=== PATIENT | male | born 2000 | race Caucasian/White ===

== ENCOUNTER 2022-07-23 17:08 | Emergency (ER) | payer OTHER, SELFPAY ==
--- NOTE | 2022-07-23 17:16 | ED.URI ---
HPI - URI/Sore Throat General Chief Complaint: Upper Respiratory Infection Stated Complaint: RUNNY NOSE/COUGH/HEADACHE/CHILLS/BODY ACHES Time Seen by Provider: 07/23/22 17:16 Source: patient, RN notes reviewed and old records reviewed Mode of arrival: ambulatory Limitations: no limitations History of Present Illness HPI Narrative: 22 year male presents to the [facility] with complaints of runny nose, cough, headache, chills and body aches since Friday night, early Friday morning. Had tried taking allergy medication 1 time. Has taken ibuprofen 1 time. Has felt feverish. Onset (ago): day(s) (3-4) Related Data Home Medications Medication Instructions Recorded Confirmed No Home Medications 07/23/22 07/23/22 Allergies Allergy/AdvReac Type Severity Reaction Status Date / Time No Known Allergies Allergy Verified 07/23/22 17:30 Review of Systems Review of Systems: All systems reviewed & are unremarkable except as noted in HPI and below Constitutional: Constitutional: Reports as per HPI and Reports chills Eyes: Eyes: Reports no additional eye complaints ENT: Reports as per HPI and Reports nasal congestion Cardiovascular: Cardiovascular: Reports no additional cardiovascular complaints, Denies chest pain and Denies dyspnea Respiratory: Respiratory: Reports as per HPI, Reports no additional respiratory complaints, Denies chest congestion, Reports cough and Denies dyspnea Gastrointestinal: Gastrointestinal: Reports no additional gastrointestinal complaints Musculoskeletal: Musculoskeletal: Reports no additional musculoskeletal complaints Integumentary/Breasts: Skin/Breast: Reports system reviewed and no additional complaints, except as docu Neurologic: Reports system reviewed and no additional complaints, except as documented Psychiatric: Psychiatric: Reports no additional psychiatric complaints Allergic/Immunologic: Allergic/Immunologic: Reports no additional allergic/immunologic complaints PMFSH Comments At the time of my signature, I reviewed and agree with the nursing past medical, surgical, social, and family history. There is no relevant family history pertinent to the patient complaint. Exam Const: General: cooperative, healthy appearing, comfortable, no acute distress, well developed, alert and average body habitus Nutritional Appearance: average body habitus Orientation/consciousness: patient oriented x3 Limitations: no limitations HENMT: Head: normal to inspection Ears: hearing grossly normal bilaterally Face/Nose/Sinus: Normal external nose present, Normal nares present, Normal nasal mucous membranes and turbinates present, Nasal discharge present clear bilateral and normal facial exam Face and sinus: normal facial exam Mouth: Yes Normal oral and palatal mucosa present, Yes lip normal and Yes moist mucous membranes Throat: posterior oropharynx normal and uvula midline Eyes: General: appearance normal, both eyes and all related structures Alignment and Position: alignment normal Periorbital: periorbital findings normal Conjunctivae: conjunctivae normal Pupils: Equal, round and reactive pupils present EOM: EOMs intact bilaterally Neck: Neck: normal visual inspection, full ROM, no lymphadenopathy and no meningeal signs Chest: Chest palpation & inspection: normal inspection of the chest Resp: Effort & Inspection: normal respiratory effort and able to speak in complete sentences Auscultation: clear to auscultation bilaterally, no crackles, no rales, no rhonchi and no wheezes Cardio: Rate: regular rate Rhythm: regular rhythm GI: Inspection: normal to inspection GI Palp: No abdominal tenderness Auscultation: normal bowel sounds Skin: General skin exam: normal color Lesions: no lesions Rashes: no rashes Wounds: no wounds Neuro: General: patient oriented x3, gait normal, tone normal, moves all extremities and no meningeal signs Cranial nerves: Yes Equal, round and reactive pupils present
[2022-07-23 17:18] VITALS: BP 140/90; PULSE 85; RESP 20; TEMP 36.7; O2SAT 99
== END 2022-07-23 17:59 | disposition home or self-care (01) ==
PROVIDERS: Emergency Provider Nurse Practitioner
DX: J06.9 Acute upper respiratory infection, unspecified (principal)
CPT/HCPCS: 87804; 99213; G0463

== ENCOUNTER 2022-09-04 16:14 | Emergency (ER) | payer OTHER, SELFPAY ==
[2022-09-04 16:23] VITALS: BP 127/83; PULSE 106; RESP 20; TEMP 37.8; O2SAT 99
--- NOTE | 2022-09-04 16:26 | ED.URI ---
HPI - URI/Sore Throat General Chief Complaint: Upper Respiratory Infection Stated Complaint: HEADACHE/BODY ACHES/RUNNY NOSE/CONGESTION/CHILLS Time Seen by Provider: 09/04/22 16:26 Source: patient, RN notes reviewed and old records reviewed Mode of arrival: ambulatory Limitations: no limitations History of Present Illness HPI Narrative: 22-year-old male who presents to [facility] with complaints of cold symptoms and fever since yesterday. Patient states he has had chills, body aches, headache weakness with some nausea. cough with congestion is unsure if he has had fever since he has been taking ibuprofen. Patient had 1 COVID vaccination but has not had any boosters has not had flu shot. MD elicited complaint: fever, cough, rhinorrhea, nasal congestion and other ( headache, body aches) Onset (ago): day(s) (day 2) Pain scale (0-10): 5 Treatments prior to arrival: ibuprofen Related Data Home Medications Medication Instructions Recorded Confirmed lisdexamfetamine 30 mg capsule 30 mg PO DAILY 09/04/22 09/04/22 (Vyvanse) Allergies Allergy/AdvReac Type Severity Reaction Status Date / Time No Known Allergies Allergy Verified 09/04/22 16:25 Review of Systems Review of Systems: CONSTITUTIONAL: report malaise, chills, sweats, or fever. EYES: Denies visual changes, redness, or discharge. ENT: Reports rhinorrhea, congestion, sinus pain, no otalgia or sore throat. CARDIOVASCULAR: Denies chest pain, palpitations, or edema. RESPIRATORY: Reports cough.? Denies dyspnea. GASTROINTESTINAL: Denies abdominal pain,reports some nausea,no vomiting, diarrhea SKIN: Denies rash or itching. MUSCULOSKELETAL: report myalgia. NEUROLOGIC: reports headache. All systems reviewed & are unremarkable except as noted in HPI and below PMFSH Past Medical History Medical History (Updated 09/04/22 @ 16:45 by Sienna Marks NP) ADHD (attention deficit hyperactivity disorder) Social History Social History (Updated 09/04/22 @ 19:29 by Sienna Marks NP) Smoking status: Never smoker Alcohol intake: current Alcohol use details: social Substance use type: marijuana Comments At time of signature, agree with nursing past medical, surgical, social and family history. There is no relevant family history pertinent to the presenting complaint Exam Narrative: GENERAL: Well-appearing, well-nourished, and in no acute distress. HEAD: Normocephalic EYES: PERRLA, conjunctivae clear ENT: Nares clear, turbinates edematous and erythematous, clear discharge. Mucous membranes moist. TM pearly hung with dull light reflex bilaterally; no tragal tenderness. Oropharynx erythematous without lesions. Tonsils not enlarged and without exudate, no drooling, no hoarseness, no trismus, uvula midline. NECK: Supple. No lymphadenopathy CHEST: Clear to auscultation, breath sounds equal. No wheezing, rhonchi, rales, or stridor. No respiratory distress, speaks in full sentences.dry cough SAO2 99% on room air HEART: Regular rate and rhythm. No murmur heard. SKIN: Warm, dry, no rash. NEURO: Alert and oriented x3. PSYCH: Normal mood and affect Course Course Emergency Course: Patient is aware of diagnosis, understands and agrees to treatment plan.? Anticipatory guidance given.? Patient agrees to follow-up as directed and is aware of reasons to seek care at the emergency department. Portions of this record may have been created with voice recognition software Level of Care: Express Care Visit Vital Signs Vital signs: Vital Signs Temperature 37.8 C H 09/04/22 16:23 Pulse Rate 106 H 09/04/22 16:23 Respiratory Rate 20 09/04/22 16:23 Blood Pressure 127/83 09/04/22 16:23 Pulse Oximetry 99 09/04/22 16:23 Temperature 37.8 C H 09/04/22 16:23 Pulse Rate 106 H 09/04/22 16:23 Respiratory Rate 20 09/04/22 16:23 Blood Pressure 127/83 09/04/22 16:23 Pulse Oximetry 99 09/04/22 16:23 Oxygen Delivery Room
== END 2022-09-04 16:50 | disposition home or self-care (01) ==
PROVIDERS: Emergency Provider Registered Nurse
DX: U07.1 COVID-19 (principal); F90.9 Attention-deficit hyperactivity disorder, unspecified type
CPT/HCPCS: 87426; 87804; 99213; C9803; G0463

== ENCOUNTER 2022-09-17 12:35 | Emergency (ER) | payer OTHER, SELFPAY ==
[2022-09-17 12:41] VITALS: BP 128/80; PULSE 97; RESP 18; TEMP 37.9; O2SAT 99
--- NOTE | 2022-09-17 12:50 | ED.URI ---
HPI - URI/Sore Throat General Chief Complaint: Upper Respiratory Infection Stated Complaint: SORE THROAT/COUGH/CONGESTION/FEVER/LIGHT HEADED Time Seen by Provider: 09/17/22 12:50 Source: patient Mode of arrival: ambulatory Limitations: no limitations History of Present Illness HPI Narrative: 22-year-old male presents with complaint of sore throat, fatigue, body aches, fever, nausea, drainage since last night. Reports that he had COVID 2 weeks ago. States that symptoms are similar. Denies chest pain and shortness of breath. Last night he took NyQuil to help him sleep. All Systems reviewed and negative except as noted above. Related Data Home Medications Medication Instructions Recorded Confirmed lisdexamfetamine 30 mg capsule 30 mg PO DAILY 09/04/22 09/17/22 (Vyvanse) Allergies Allergy/AdvReac Type Severity Reaction Status Date / Time No Known Allergies Allergy Verified 09/17/22 12:41 Review of Systems Review of Systems: CONSTITUTIONAL: Reports fever, chills, or sweats. EYES: Denies visual changes, redness, or discharge. ENT: Reports rhinorrhea, congestion, sore throat. Denies otalgia. CARDIOVASCULAR: Denies chest pain, palpitations, or edema. RESPIRATORY: Denies cough or dyspnea. GASTROINTESTINAL: Denies abdominal pain. Reports nausea. Denies vomiting, or diarrhea. GENITOURINARY: Denies dysuria or hematuria. SKIN: Denies rash or itching. MUSCULOSKELETAL: Denies back pain, joint pain, or myalgia. NEUROLOGIC: Denies headache, numbness, or weakness. PSYCHIATRIC: Denies anxiety or depression. All other systems reviewed are negative, except as documented in HPI. PMFSH Past Medical History Medical History (Updated 09/17/22 @ 13:03 by Janie Melgoza NP) ADHD (attention deficit hyperactivity disorder) Social History Social History (Updated 09/04/22 @ 19:29 by Sienna Marks NP) Smoking status: Never smoker Alcohol intake: current Alcohol use details: social Substance use type: marijuana Comments At time of signature, agree with nursing past medical, surgical, social and family history. There is no relevant family history pertinent to the presenting complaint. Exam Narrative: GENERAL: This is a well-nourished, well-developed patient, in no apparent distress. HEAD: normocephalic, atraumatic. EYES: PERRL. Sclera clear/white. Vision is grossly intact. EARS: External ears normal, auditory canals clear and without drainage, TMs normal without perforation. Hearing grossly intact. NOSE: External nose normal with no obvious nasal discharge, nares without redness, no rhinorrhea. THROAT: Mucous membranes moist, posterior pharynx and tonsils erythematous with swelling. No exudates. NECK: Neck supple, non-tender with anterior cervical lymphadenopathy. No masses or thyromegaly. CARDIOVASCULAR: Regular rate and rhythm without murmurs, gallops, or rubs. RESPIRATORY: Clear to auscultation. Breath sounds equal bilaterally. No wheezes, rales, or rhonchi. GASTROINTESTINAL: Abdomen soft, non-tender, nondistended. Bowel sounds are active. No hepato-splenomegaly, or palpable masses. No guarding. SKIN: warm, Dry, intact with no suspicious lesions or rash, good texture and turgor. NEURO: awake, alert, and oriented to person, place and time. There were no obvious focal neurologic abnormalities. EXTREMITIES: No joint tenderness, effusion, or edema noted. Course Course Level of Care: Express Care Visit Vital Signs Vital signs: Vital Signs Temperature 37.9 C H 09/17/22 12:41 Pulse Rate 97 09/17/22 12:41 Respiratory Rate 18 09/17/22 12:41 Blood Pressure 128/80 09/17/22 12:41 Pulse Oximetry 99 09/17/22 12:41 Oxygen Delivery Room Air 09/17/22 12:41 Temperature 37.9 C H 09/17/22 12:41 Pulse Rate 97 09/17/22 12:41 Respiratory Rate 18 09/17/22 12:41 Blood Pressure 128/80 09/17/22 12:41 Pulse Oximetry 99 09/17/22 12:41 Oxygen Delivery Room Air 09/17/22 12:41 Re
== END 2022-09-17 13:05 | disposition home or self-care (01) ==
PROVIDERS: Emergency Provider Nurse Practitioner Family
DX: J02.9 Acute pharyngitis, unspecified (principal); F90.9 Attention-deficit hyperactivity disorder, unspecified type; Z86.16 Personal history of COVID-19
CPT/HCPCS: 87081; 87804; 87880; 99213; G0463

== ENCOUNTER 2025-03-09 15:39 | Emergency (ER) | payer OTHER, SELFPAY ==
[2025-03-09 15:45] VITALS: BP 129/80; PULSE 116; RESP 20; TEMP 37.1; O2SAT 96
--- NOTE | 2025-03-09 16:11 | ED_ITS ---
HPI - General Adult General Chief complaint: Allergic Reaction Stated complaint: Rash/Started New Medication Source: patient Mode of arrival: ambulatory Limitations: no limitations History of Present Illness HPI narrative: Pt is a 24 y/o male presenting with c/o rash. He reports mildly pruritic rash to ulises. forearms, hands, plantar aspect of feet. Rash began 10 days ago, initially to hands. Reports blisters to the L. 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 Reports new medication (lamictal) 1 month ago. No new skin contacts, foods, travel, pets, personal hygiene products, similar rash among household members. No preceeding URI, constitutional sx. 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 No additional complaints. Related Data Home Medications ?Medication ?Instructions ?Recorded ?Confirmed ?Last Taken ?Type lisdexamfetamine 30 mg capsule 30 mg PO DAILY 09/04/22 09/17/22 Unknown History (Vyvanse) lamotrigine 100 mg tablet mg 03/09/25 Unknown History Allergies Allergy/AdvReac Type Severity Reaction Status Date / Time No Known Allergies Allergy Verified 03/09/25 15:55 Review of Systems Review of Systems: All systems reviewed & are unremarkable except as noted in HPI and below PMFSH Past Medical History Medical History ADHD (attention deficit hyperactivity disorder) Social History Social History Smoking status: Never smoker Alcohol intake: current Alcohol use details: social Substance use type: marijuana Exam Narrative: GENERAL: Well-appearing, well-nourished, and in no acute distress. HEAD: Normocephalic, atraumatic. EYES: EOMI. No redness or drainage. Conjunctivae normal. ENT: Mucous membranes pink and moist. Nares clear. No rhinorrhea. TMs normal bilaterally. Throat normal. Uvula midline. NECK: Normal AROM. Supple. No lymphadenopathy. CHEST: No respiratory distress. Clear to auscultation. HEART: Regular rate and rhythm. No murmur appreciated. Normal peripheral pulses. MUSCULOSKELETAL: No bony tenderness. EXTREMITIES: Normal range of motion. No edema. SKIN: blanchable, erythematous, singular, macular lesions scattered amongst bilateral forearms, hands (does not involve webspacing, palms) (<10 in total); there is a blanchable, erythematous, coalescing macular eruption noted to the plantar aspect of ulises. feet (mid foot). There is a singular blister noted to the distal palmar aspect of the 3rd and 4th fingers on the L. hand. NO evidence of secondary bacterial skin infection. Warm, dry, no rash. Capillary refill normal. Normal skin turgor. NEURO: No focal deficits. Alert and oriented x3. Gait steady. PSYCH: Normal affect. No signs of depression or anxiety. single blister to the distal palmar aspect of the L. 3rd and 4th fingers without evidence of infection Course Course Emergency Course: Consulted with Dr. Dillon--patient does not present with typical SJS symptoms--could be an allergic reaction/delayed hypersensitivity--he recs prednisone 40mg QD x 5 days, Zyrtec 10mg BID x 10 days, stopping lamictal and f/u with prescriber MIA, calamine lotion for pruritus. Level of Care: Express Care Visit Vital Signs Vital signs: Vital Signs Temperature 98.7 F 03/09/25 15:45 Pulse Rate 116 H 03/09/25 15:45 Respiratory Rate 03/09/25 15:45 Blood Pressure 129/80 03/09/25 15:45 Pulse Oximetry 03/09/25 15:45 Oxygen Delivery Room Air 03/09/25 15:45 Temperature 98.7 F 03/09/25 15:45 Pulse Rate 116 H 03/09/25 15:45 Respiratory Rate 03/09/25 15:45 Blood Pressure 129/80 03/09/25 15:45 Pulse Oximetry 03/09/25 15:45 Oxygen Delivery Room Air 03/09/25 15:45 Medical Decision Making Vital Signs Vital Signs: Vital Signs Temperature 98.7 F 03/09/25 15:45 Pulse Rate 116 H 03/09/25 15:45 Respiratory Rate 03/09/25 15:45 Blood Pressure 129/80 03/09/25 15:45 Pulse Oximetry 03/09/25 15:45 Oxygen Delivery Room Air 03/09/25 15:45 Temperature 98.7 F 03/09/25 15:45 Pulse Rate 116 H 03/09/25 15:45 Respiratory Rate 20 03/09/25 15:45 Blood Pressure 129/80 03/09/25 15:45 Pulse Oximetry 96 03/09/25 15:45 Oxygen Delivery Room Air 03/09/25 15:45 Discharge Plan Discharge Clinical Impression: Rash Patient Disposition: Home Condition: Stable Instructions: Antibiotic Form, Acute Rash (ED) Additional Instructions: Go straight to ER should your symptoms become worse or should any new symptoms develop Patient Language: Divehi Prescriptions: New prednisone 20 mg tablet 40 mg PO DAILY Qty: 10 0RF cetirizine [Zyrtec] 10 mg tablet 10 mg PO BID 10 Days Qty: 20 0RF No Action lisdexamfetamine [Vyvanse] 30 mg capsule 30 mg PO DAILY lamotrigine 100 mg tablet Follow-up/Referrals: PHYSICIAN NOT ON STAFF,NONSTAFF [Primary Care Provider] - Time of Disposition: 16:12
== END 2025-03-09 16:25 | disposition home or self-care (01) ==
PROVIDERS: Emergency Provider Registered Nurse
DX: R21 Rash and other nonspecific skin eruption (principal); F12.90 Cannabis use, unspecified, uncomplicated; F90.9 Attention-deficit hyperactivity disorder, unspecified type
CPT/HCPCS: 99213; G0463